=== PATIENT | female | born 1985 | race Caucasian/White ===

== ENCOUNTER → 2022-03-04 | Outpatient (CLI) | payer OTHER ==
[~2022-03-04] MED LIST: ALBUTEROL0.09 MG/A2 INH; AMOXIL500 MG PO; BENADRYL25 MG PO; BLEPH-10 15 ML15 ML OP; HYDROCODONE BIT1 T11 PO; MOTRIN800 MG PO; OMNICEF300 MG PO; PEPCID20 MG PO; PHENERGAN25 M1 PO; QVAR40 MCG INH; TESSALON PERLE200 MG PO; VENTOLIN0.09 MG/AC INH; VICO75300 PO; VICODIN 5/500 505 MG PO; VICODIN ES 7501 TAB PO; VICODIN HP 6601 TAB PO; ZITHROMAX Z PA250 MG PO; ZOFRAN ODT4 MG SL; ZYRTEC10 MG PO
[2022-03-04 09:50] LABS: BASO # 0.1 10*3/uL (0.0-0.1); BASO % 1.1 % (0.0-1.0); EOS # 0.3 10*3/uL (0.0-0.4); EOS % 4.4 % (1.0-4.0); HEMATOCRIT 38.1 % (37.0-47.0); LYMPH # 1.7 10*3/uL (1.3-4.4); LYMPH % 26.9 % (27.0-41.0); MEAN CELL VOLUME 86.2 fl (81.0-99.0); MEAN CORPUSCULAR HGB CONC 33.6 g/dl (33.0-37.0); MEAN PLATELET VOLUME 10.3 fl (9.6-12.3); MONO # 0.5 10*3/uL (0.1-1.0); NEUT # 3.8 10*3/uL (2.3-7.9); NEUT % 59.4 % (47.0-73.0); PLATELET COUNT AUTOMATED 326 10*3/uL (130-400); RED BLOOD COUNT 4.42 10*6/uL (4.10-5.10); RED CELL DISTRI WIDTH 12.7 % (0-14.5); WHITE BLOOD COUNT 6.4 10*3/uL (4.8-10.8)
[2022-03-04 10:11] LABS: CHLORIDE 109 mmol/L (98-107); POTASSIUM 4.2 mmol/L (3.5-5.1); SODIUM 142 mmol/L (136-145)
[2022-03-04 10:31] LABS: ALKALINE PHOSPHATASE 57 U/L (45-117); BUN 10 mg/dl (7-24); SGOT/AST 16 IU/L (3-35); SGPT/ALT 21 U/L (12-78); TOTAL PROTEIN 6.9 gm/dL (6.4-8.2)
== END | disposition home or self-care (01) ==
LOC: LAB 09:12
PROVIDERS: ATTEND Nurse Practitioner Family
DX: L70.0 Acne vulgaris (principal)

== ENCOUNTER → 2022-12-18 | Outpatient (CLI) | payer OTHER ==
[2022-12-18 08:25] LABS: BASO # 0.1 10*3/uL (0.0-0.1); BASO % 0.7 % (0.0-1.0); BILIRUBIN Negative (Negative); BLOOD 1+ (Negative); CLARITY Clear (Clear); COLOR Yellow (Yellow); EOS # 0.3 10*3/uL (0.0-0.4); EOS % 3.4 % (1.0-4.0); GLUCOSE Negative (Negative); HEMATOCRIT 39.5 % (37.0-47.0); KETONE Negative (Negative); LEUKO ESTERASE Negative (Negative); LYMPH # 2.3 10*3/uL (1.3-4.4); LYMPH % 28.2 % (27.0-41.0); MEAN CELL VOLUME 85.5 fl (81.0-99.0); MEAN CORPUSCULAR HGB 28.8 pg (27.0-31.0); MEAN CORPUSCULAR HGB CONC 33.7 g/dl (33.0-37.0); MEAN PLATELET VOLUME 10.5 fl (9.6-12.3); MONO # 0.7 10*3/uL (0.1-1.0); MONO % 9.1 % (3.0-9.0); NEUT # 4.7 10*3/uL (2.3-7.9); NEUT % 58.4 % (47.0-73.0); NITRITE Negative (Negative); PH 5.5 (4.5-8.0); PLATELET COUNT AUTOMATED 298 10*3/uL (130-400); RED BLOOD COUNT 4.62 10*6/uL (4.10-5.10); RED CELL DISTRI WIDTH 12.8 % (0-14.5); RETICULOCYTE % 1.59 % (0.50-2.50); SPECIFIC GRAVITY 1.025 (1.001-1.030); UROBILINOGEN 0.2 E.U./dl (0.0-1.0)
[2022-12-18 09:04] LABS: BACTERIA TRACE; WBC 0-2 wbc/hpf (0-5)
[2022-12-18 09:40] LABS: ALKALINE PHOSPHATASE 54 U/L (46-116); BUN 11 mg/dl (9-23); CHLORIDE 107 mmol/L (98-107); CHOLESTEROL 138 mg/dL (<200); GAMMA GLUTAMYL TRANSPEPTIDASE 11 U/L (0-73); LDL CHOLESTEROL 66 mg/dL (9-159); POTASSIUM 3.7 mmol/L (3.4-5.1); SGPT/ALT 15 U/L (10-49); T3 UPTAKE 25.8 % (22.4-36.7); THYROID STIM HORMONE (HS) 4.001 uIU/ml (0.550-4.780); THYROXINE (T4) TOTAL 6.7 ug/dl (4.5-10.9); TOTAL PROTEIN 6.6 gm/dL (6.0-8.0); TRIGLYCERIDES 95 mg/dl (<150)
[2022-12-18 09:42] LABS: VITAMIN D, 25-HYDROXY 40.2 ng/mL (30-100)
== END | disposition home or self-care (01) ==
LOC: LAB 08:00
PROVIDERS: ATTEND Family Medicine
DX: R79.89 Other specified abnormal findings of blood chemistry (principal); R53.83 Other fatigue; E78.5 Hyperlipidemia, unspecified; E55.9 Vitamin D deficiency, unspecified

== ENCOUNTER 2023-11-18 21:01 | Inpatient (IN) | payer OTHER ==
[~2023-11-18] VITALS: Ht 165.1 cm; Wt 76.7 kg
[2023-11-18 21:09] VITALS: BP 120/90
[2023-11-18] MEDS ORDERED: ADDERALL7.5 M1 PO (21:13)
[2023-11-18] MEDS ORDERED: PROVENTIL HFA6.7 GM INH ×2 (21:14→21:58)
[2023-11-18] MEDS ORDERED: Ondansetron Hydrochloride 4 MG/2 ML VIAL IV ONE (21:20)
[2023-11-18] MEDS ORDERED: SODIUM CHLORIDE 0.9% 1,000 ML IV ONE (21:20)
[2023-11-18 21:33] LABS: HEMATOCRIT 40.5 % (37.0-47.0); MANUAL DIFF REFLEX YES; MEAN CORPUSCULAR HGB 29.3 pg (27.0-31.0); MEAN CORPUSCULAR HGB CONC 34.1 g/dl (33.0-37.0); PLATELET COUNT AUTOMATED 285 10*3/uL (130-400); RED BLOOD COUNT 4.71 10*6/uL (4.10-5.10); RED CELL DISTRI WIDTH 12.4 % (0-14.5); WHITE BLOOD COUNT 19.8 10*3/uL (4.8-10.8)
[2023-11-18 21:46] LABS: BILIRUBIN Negative (Negative); BLOOD 1+ (Negative); CLARITY Cloudy (Clear); COLOR Yellow (Yellow); GLUCOSE Negative (Negative); KETONE 3+ (Negative); LEUKO ESTERASE Trace (Negative); NITRITE Negative (Negative); SPECIFIC GRAVITY >= 1.030 (1.001-1.030)
[2023-11-18 21:48] LABS: ALKALINE PHOSPHATASE 62 U/L (46-116); BUN 7 mg/dl (9-23); CHLORIDE 104 mmol/L (98-107); LIPASE 25 U/L (12-53); POTASSIUM 3.7 mmol/L (3.4-5.1); SGPT/ALT 12 U/L (5-49); TOTAL PROTEIN 7.2 gm/dL (6.0-8.0)
[2023-11-18 21:49] LABS: PH 8.5 (4.5-8.0)
[2023-11-18 21:53] LABS: BACTERIA 3+; RBC 21-30 rbc/hpf (0-2); URINE AMPHETAMINES Positive (1000ng/ml); URINE BARBITURATES Negative (200ng/ml); URINE BENZODIAZEPINES Negative (200ng/ml); URINE CANNABINOIDS (THC) Positive (50ng/ml); URINE COCAINE Negative (300ng/ml); URINE METHADONE Negative (300ng/ml); URINE OPIATES Negative (300ng/ml); URINE PHENCYCLIDINE Negative (25ng/ml)
[2023-11-18 21:54] LABS: BURR CELLS FEW; PLATELET SUFFICIENCY NORMAL (NORMAL); TOTAL CELLS COUNTED 100 #CELLS
[2023-11-18] MEDS ORDERED: CETIRIZINE HYDR10 MG PO (21:56)
[2023-11-18] MEDS ORDERED: DEXTROAMPH SACC20 M1 PO (21:57)
[2023-11-18] MEDS ORDERED: GNP VITAMIN A113 GM PO (21:57)
[2023-11-18] MEDS ORDERED: Ketorolac Tromethamine 30 MG/ML VIAL IV ONE (22:05)
[2023-11-18] MEDS ORDERED: Ceftriaxone Sodium 1 GM/10 ML SYR IV ONE (23:05)
[2023-11-18] MEDS ORDERED: CIPROFLOXACIN 200 ML IV ONE (23:25)
[2023-11-18] MEDS ORDERED: MONTELUKAST SOD10 MG PO (23:57)
[2023-11-19] VITALS (13 sets, daily range): BP systolic 83–126; BP diastolic 50–83
[2023-11-19] MEDS ORDERED: SODIUM CHLORIDE 0.9% 1,000 ML IV ONE (00:20)
[2023-11-19] MEDS ORDERED: METRONIDAZOLE 100 ML IV ONE ×2 (00:40→14:25)
[2023-11-19] MEDS ORDERED: Ketorolac Tromethamine 15 MG/ML VIAL IV PRN (01:55)
[2023-11-19] MEDS ORDERED: MORPHINE Sulfate 2 MG/ML SYR IV PRN (01:55)
[2023-11-19] MEDS ORDERED: Acetaminophen/Hydrocodone 5 MG/325 MG TABLET PO PRN (01:55)
[2023-11-19] MEDS ORDERED: VITAMIN D325 MC1 PO (01:55)
[2023-11-19] MEDS ORDERED: BISACODYL 5 MG TAB PO PRN (01:55)
[2023-11-19] MEDS ORDERED: BISACODYL 10 MG SUPP R PRN (01:55)
[2023-11-19] MEDS ORDERED: Ondansetron Hydrochloride 4 MG/2 ML VIAL IV PRN (01:55)
[2023-11-19] MEDS ORDERED: ACETAMINOPHEN 325 MG TAB PO PRN (01:55)
[2023-11-19] MEDS ORDERED: ACETAMINOPHEN 650 MG SUPP R PRN (01:55)
[2023-11-19] MEDS ORDERED: MAGNESIUM OXID500 MG PO (01:57)
[2023-11-19] MEDS ORDERED: SODIUM CHLORIDE 0.9% 1,000 ML IV SCH (03:50)
[2023-11-19] MEDS ORDERED: HYDROmorphONE Hydrochloride 0.5 MG/0.5 ML SYRINGE IV PRN (04:45)
[2023-11-19] MEDS ORDERED: Midazolam Hydrochloride 2 MG/2 ML VIAL IV PRN (04:50)
[2023-11-19] MEDS ORDERED: METRONIDAZOLE 100 ML IV SCH (06:00)
[2023-11-19] MEDS ORDERED: Ondansetron Hydrochloride 4 MG/2 ML VIAL ONE (08:21)
[2023-11-19] MEDS ORDERED: fentaNYL CITRATE/PF 50 MCG/ML SYRINGE ONE (08:21)
[2023-11-19] MEDS ORDERED: Albuterol Sulfate 2.5 MG/3 ML VIAL NEB ONE ×2 (09:05→09:17)
[2023-11-19] MEDS ORDERED: Lactated Ringer's Solution 1,000 ML IV ONE (09:38)
[2023-11-19] MEDS ORDERED: Montelukast Sodium 10 MG TAB PO SCH (10:00)
[2023-11-19] MEDS ORDERED: CIPROFLOXACIN 200 ML IV SCH (10:00)
[2023-11-19] MEDS ORDERED: Amphetamine Salt Combination 5 MG TAB PO SCH (10:00)
[2023-11-19] MEDS ORDERED: Cetirizine Hydrochloride 10 MG TAB PO SCH (10:00)
[2023-11-19 13:47] LABS: HEMATOCRIT 37.1 % (37.0-47.0); MANUAL DIFF REFLEX YES; MEAN CELL VOLUME 87.9 fl (81.0-99.0); MEAN CORPUSCULAR HGB 28.9 pg (27.0-31.0); MEAN CORPUSCULAR HGB CONC 32.9 g/dl (33.0-37.0); MEAN PLATELET VOLUME 9.6 fl (9.6-12.3); PLATELET COUNT AUTOMATED 221 10*3/uL (130-400); RED BLOOD COUNT 4.22 10*6/uL (4.10-5.10); RED CELL DISTRI WIDTH 12.6 % (0-14.5); WHITE BLOOD COUNT 12.7 10*3/uL (4.8-10.8)
[2023-11-19 14:01] LABS: CHLORIDE 108 mmol/L (98-107); POTASSIUM 3.9 mmol/L (3.4-5.1)
[2023-11-19 14:03] LABS: BUN < 5 mg/dl (9-23)
[2023-11-19 14:06] LABS: PLATELET SUFFICIENCY NORMAL (NORMAL); TOTAL CELLS COUNTED 100 #CELLS
[2023-11-19 14:07] LABS: BURR CELLS FEW; OVALOCYTES FEW
[2023-11-20] VITALS: BP 111/72
[2023-11-20 06:23] LABS: BASO % 0.1 % (0.0-1.0); HEMATOCRIT 34.2 % (37.0-47.0); LYMPH # 0.6 10*3/uL (1.3-4.4); LYMPH % 3.4 % (27.0-41.0); MEAN CELL VOLUME 87.9 fl (81.0-99.0); MEAN CORPUSCULAR HGB 30.1 pg (27.0-31.0); MEAN CORPUSCULAR HGB CONC 34.2 g/dl (33.0-37.0); MEAN PLATELET VOLUME 10.5 fl (9.6-12.3); MONO # 1.4 10*3/uL (0.1-1.0); MONO % 7.5 % (3.0-9.0); NEUT # 16.9 10*3/uL (2.3-7.9); NEUT % 88.5 % (47.0-73.0); PLATELET COUNT AUTOMATED 228 10*3/uL (130-400); RED BLOOD COUNT 3.89 10*6/uL (4.10-5.10); RED CELL DISTRI WIDTH 12.9 % (0-14.5); WHITE BLOOD COUNT 19.1 10*3/uL (4.8-10.8)
[2023-11-20 06:57] LABS: ALKALINE PHOSPHATASE 55 U/L (46-116); BUN 9 mg/dl (9-23); CHLORIDE 105 mmol/L (98-107); CHOLESTEROL 80 mg/dL (<200); FREE T4 1.15 ng/dl (0.89-1.76); LDL CHOLESTEROL 29 mg/dL (9-159); POTASSIUM 3.7 mmol/L (3.4-5.1); SGPT/ALT 26 U/L (5-49); TOTAL PROTEIN 5.9 gm/dL (6.0-8.0); TRIGLYCERIDES 37 mg/dl (<150)
[2023-11-20 08:00] VITALS: BP 99/62
[2023-11-20] MEDS ORDERED: Neostigmine Methylsulfate 3 MG/3 ML SYRINGE IV ONE (10:31)
[2023-11-20] MEDS ORDERED: SEVOFLURANE 250 ML BOT INH ONE (10:31)
[2023-11-20] MEDS ORDERED: ROCURONIUM BROMIDE 50 MG/5 ML SYRINGE IV ONE (10:31)
[2023-11-20] MEDS ORDERED: Ketorolac Tromethamine 30 MG/ML VIAL IV ONE (10:31)
[2023-11-20] MEDS ORDERED: DEXMEDETOMIDINE HCL 200 MCG/2 ML VIAL IV ONE (10:31)
[2023-11-20] MEDS ORDERED: GLYCOPYRROLATE IN WATER/PF 0.4 MG/2 ML SYRINGE IV ONE (10:31)
[2023-11-20] MEDS ORDERED: Ondansetron Hydrochloride 4 MG/2 ML VIAL IV ONE (10:31)
[2023-11-20] MEDS ORDERED: PROPOFOL 200 MG/20 ML VIAL IV ONE (10:31)
[2023-11-20 12:00] VITALS: BP 99/66
[2023-11-20 16:00] VITALS: BP 102/66
[2023-11-20 20:00] VITALS: BP 107/59
[2023-11-21] VITALS: BP 102/69
[2023-11-21 06:05] LABS: BUN 11 mg/dl (9-23); CHLORIDE 108 mmol/L (98-107); POTASSIUM 3.2 mmol/L (3.4-5.1)
[2023-11-21 06:15] LABS: HEMATOCRIT 32.1 % (37.0-47.0); MEAN CELL VOLUME 87.7 fl (81.0-99.0); MEAN PLATELET VOLUME 11.3 fl (9.6-12.3); PLATELET COUNT AUTOMATED 231 10*3/uL (130-400); RED BLOOD COUNT 3.66 10*6/uL (4.10-5.10); RED CELL DISTRI WIDTH 12.9 % (0-14.5); WHITE BLOOD COUNT 15.9 10*3/uL (4.8-10.8)
[2023-11-21 06:19] LABS: MANUAL DIFF REFLEX YES
[2023-11-21 07:16] LABS: ATYPICAL LYMPHS 1 % (0-0); TOTAL CELLS COUNTED 100 #CELLS
[2023-11-21 07:17] LABS: PLATELET SUFFICIENCY NORMAL (NORMAL)
[2023-11-21] MEDS ORDERED: HYDROCODONE-AC1 EAC1 PO (07:17)
[2023-11-21] MEDS ORDERED: ONDANSETRON HYDR4 M1 PO (07:17)
[2023-11-21] MEDS ORDERED: KETOROLAC10 MG PO (07:17)
[2023-11-21] MEDS ORDERED: LEVOFLOXACIN500 MG PO (07:17)
[2023-11-21] MEDS ORDERED: METRONIDAZOLE500 M1 PO ×2 (07:17→09:07)
[2023-11-21 08:00] VITALS: BP 106/68; BP 126/51
[2023-11-21 12:00] VITALS: BP 109/71
[2023-11-21] MEDS ORDERED: POTASSIUM CHLORIDE 20 MEQ TAB PO ONE (12:20)
== END 2023-11-21 14:20 | disposition home or self-care (01) | DRG 853 ==
LOC: ED 21:01 → EDHOLD 11-19 00:45 → 5E 11-19 00:45
PROVIDERS: Internal Medicine; Physician Assistant Medical; ADMIT Family Medicine; ATTEND Family Medicine
PROC: 0DTJ4ZZ Resection of Appendix, Percutaneous Endoscopic Approach (ICD-10-PCS; principal; 2023-11-19)
DX: A41.9 Sepsis, unspecified organism (principal); K35.32 Acute appendicitis with perforation, localized peritonitis, and gangrene, without abscess; N39.0 Urinary tract infection, site not specified; R31.21 Asymptomatic microscopic hematuria; J45.30 Mild persistent asthma, uncomplicated; J30.2 Other seasonal allergic rhinitis; F90.9 Attention-deficit hyperactivity disorder, unspecified type; E55.9 Vitamin D deficiency, unspecified; F41.1 Generalized anxiety disorder; B96.20 Unspecified Escherichia coli [E. coli] as the cause of diseases classified elsewhere; Z88.1 Allergy status to other antibiotic agents; Z79.899 Other long term (current) drug therapy; Z90.721 Acquired absence of ovaries, unilateral; Z90.49 Acquired absence of other specified parts of digestive tract; Z80.1 Family history of malignant neoplasm of trachea, bronchus and lung; Z82.49 Family history of ischemic heart disease and other diseases of the circulatory system; Z83.3 Family history of diabetes mellitus; Z80.3 Family history of malignant neoplasm of breast; Z79.51 Long term (current) use of inhaled steroids

== ENCOUNTER 2024-02-22 08:06 | Emergency (ER) | payer OTHER ==
[~2024-02-22] VITALS: Ht 172.7 cm; Wt 70.3 kg
[~2024-02-22 08:06] MED LIST changes: +ADDERALL7.5 M1 PO; +CETIRIZINE HYDR10 MG PO; +DEXTROAMPH SACC20 M1 PO; +GNP VITAMIN A113 GM PO; +HYDROCODONE-AC1 EAC1 PO; +KETOROLAC10 MG PO; +LEVOFLOXACIN500 MG PO; +MAGNESIUM OXID500 MG PO; +METRONIDAZOLE500 M1 PO; +MONTELUKAST SOD10 MG PO; +ONDANSETRON HYDR4 M1 PO; +PROVENTIL HFA6.7 GM INH; +VITAMIN D325 MC1 PO
[2024-02-22] MEDS ORDERED: SODIUM CHLORIDE 0.9% 1,000 ML IV ONE (08:20)
[2024-02-22] MEDS ORDERED: Atropine Sulfate/Diphenoxyla 1 TAB TAB PO ONE (08:20)
[2024-02-22 08:30] LABS: BASO % 0.7 % (0.0-1.0); EOS # 0.1 10*3/uL (0.0-0.4); EOS % 2.5 % (1.0-4.0); HEMATOCRIT 42.7 % (37.0-47.0); LYMPH # 0.9 10*3/uL (1.3-4.4); LYMPH % 15.9 % (27.0-41.0); MEAN CELL VOLUME 85.6 fl (81.0-99.0); MEAN CORPUSCULAR HGB 28.7 pg (27.0-31.0); MEAN CORPUSCULAR HGB CONC 33.5 g/dl (33.0-37.0); MEAN PLATELET VOLUME 9.8 fl (9.6-12.3); MONO # 0.7 10*3/uL (0.1-1.0); MONO % 11.5 % (3.0-9.0); NEUT # 3.9 10*3/uL (2.3-7.9); PLATELET COUNT AUTOMATED 286 10*3/uL (130-400); RED BLOOD COUNT 4.99 10*6/uL (4.10-5.10); RED CELL DISTRI WIDTH 12.7 % (0-14.5); WHITE BLOOD COUNT 5.7 10*3/uL (4.8-10.8)
[2024-02-22 08:51] LABS: BUN 6 mg/dl (9-23); CHLORIDE 106 mmol/L (98-107); POTASSIUM 3.6 mmol/L (3.4-5.1)
[2024-02-22] MEDS ORDERED: CIPRO500 MG PO (09:17)
[2024-02-22] MEDS ORDERED: LOMOTIL 2.5-0.1 EACH PO (09:17)
== END 2024-02-22 10:00 | disposition home or self-care (01) ==
LOC: ED 08:06
PROVIDERS: Emergency Medicine
DX: R19.7 Diarrhea, unspecified (principal); J45.909 Unspecified asthma, uncomplicated; F90.9 Attention-deficit hyperactivity disorder, unspecified type; Z88.1 Allergy status to other antibiotic agents; Z79.899 Other long term (current) drug therapy; Z79.2 Long term (current) use of antibiotics; Z90.49 Acquired absence of other specified parts of digestive tract; Z98.890 Other specified postprocedural states

== ENCOUNTER → 2025-04-07 | Outpatient (CLI) | payer OTHER ==
[~2025-04-07] MED LIST changes: +CIPRO500 MG PO; +LOMOTIL 2.5-0.1 EACH PO
[2025-04-07 10:31] LABS: BILIRUBIN Negative (Negative); BLOOD 1+ (Negative); CLARITY Clear (Clear); COLOR Yellow (Yellow); KETONE Negative (Negative); LEUKO ESTERASE Negative (Negative); NITRITE Negative (Negative); PH 5.5 (4.5-8.0); SPECIFIC GRAVITY 1.015 (1.001-1.030); UROBILINOGEN 0.2 E.U./dl (0.0-1.0)
[2025-04-07 10:32] LABS: BASO # 0.1 10*3/uL (0.0-0.1); BASO % 0.7 % (0.0-1.0); EOS # 0.4 10*3/uL (0.0-0.4); EOS % 4.7 % (1.0-4.0); MEAN CELL VOLUME 86.6 fl (81.0-99.0); MEAN CORPUSCULAR HGB 29.4 pg (27.0-31.0); MEAN PLATELET VOLUME 10.0 fl (9.6-12.3); MONO # 0.7 10*3/uL (0.1-1.0); MONO % 8.8 % (3.0-9.0); NEUT # 5.1 10*3/uL (2.3-7.9); NEUT % 61.7 % (47.0-73.0); NUCLEATED RED BLOOD CELL 0.0 % (0.0-0.0); NUCLEATED RED BLOOD CELL 0.0 10*3/uL (0.0-0.0); PLATELET COUNT AUTOMATED 310 10*3/uL (130-400); RED CELL DISTRI WIDTH 12.4 % (0-14.5); RETICULOCYTE % 1.76 % (0.50-2.50)
[2025-04-07 10:44] LABS: BACTERIA TRACE; MUCOUS TRACE; WBC 0-2 wbc/hpf (0-5); YEAST TRACE
[2025-04-07 11:00] LABS: BUN 9 mg/dl (9-23); GAMMA GLUTAMYL TRANSFERASE 20 U/L (0-38); LDL CHOLESTEROL 99 mg/dL (9-159); SGPT/ALT 23 U/L (5-49); T3 UPTAKE 26.2 % (22.4-36.7); THYROXINE (T4) TOTAL 6.8 ug/dl (4.5-10.9)
[2025-04-07 11:01] LABS: VITAMIN D, 25-HYDROXY 45.4 ng/mL (30-100)
== END | disposition home or self-care (01) ==
LOC: LAB 10:09
PROVIDERS: ATTEND Family Medicine
DX: E78.5 Hyperlipidemia, unspecified (principal); E55.9 Vitamin D deficiency, unspecified; R53.83 Other fatigue; R79.89 Other specified abnormal findings of blood chemistry